=== PATIENT | female | born 1975 | race Caucasian/White ===

== ENCOUNTER → 2016-07-07 | Outpatient (CLI) | payer BC ==
[~2016-07-07] MED LIST: MTR600X PO; OXYC5TAB PO; PRENTAB26 PO
--- NOTE | 2016-07-07 18:39 | DIAGNOSTIC IMAGING REPORT ---
LEFT SHOULDER 3 VIEWS CLINICAL HISTORY: Left shoulder pain. FINDINGS: 3 views of the left shoulder are obtained. No prior studies are available for comparison at the time of dictation. The skeletal structures are well mineralized. No fracture or dislocation is seen. The glenohumeral and acromioclavicular joints are well-maintained. A small bone island is noted in the humeral head. There is bulky calcific tendinopathy identified. The overlying soft tissues are otherwise normal in appearance. Imaged left upper lobe lung parenchyma appears clear. IMPRESSION: 1. No acute bony abnormality is seen in the left shoulder. 2. Bulky calcific tendinopathy is noted. Electronically signed by: Jad Tirado M.D. 07/07/2016 6:37 PM Dictated Date/Time: 07/07/2016 6:36 PM
== END | disposition home or self-care (01) ==
LOC: C.RAD 17:30
PROVIDERS: ATTEND Family Medicine
DX: M25.512 Pain in left shoulder (principal); M75.32 Calcific tendinitis of left shoulder